=== PATIENT | female | born 1985 | race American Indian/Alaskan Native ===

== ENCOUNTER 2016-08-21 12:42 | Emergency (ER) | payer MEDICAID | END 2016-08-21 12:43 | disposition home or self-care (01) | LOC: ED 12:42 | DX: R03.0 Elevated blood-pressure reading, without diagnosis of hypertension (principal); Z53.21 Procedure and treatment not carried out due to patient leaving prior to being seen by health care provider ==

== ENCOUNTER 2016-12-28 23:15 | Emergency (ER) | payer SELFPAY ==
[2016-12-28 23:52] LABS: Basophils % (Auto) 0.8 % (0.0-1.8); Eosinophils % (Auto) 2.1 % (0.0-4.3); Hematocrit 36.3 % (30.3-42.9); Hemoglobin 12.1 gm/dl (10.1-14.3); Mean Corpuscular HGB Conc 33 % (30-34); Mean Corpuscular Hemoglobin 26 pg (28-32); Mean Corpuscular Volume 77 fl (79-97); Platelet Count 278 K/mm3 (140-440); Red Blood Count 4.71 M/mm3 (3.65-5.03); Red Cell Distribution Width 16.2 % (13.2-15.2); White Blood Count 6.8 K/mm3 (4.5-11.0)
[2016-12-29 00:12] LABS: Anion Gap 17 mmol/L; BUN/Creatinine Ratio 15.71; Blood Urea Nitrogen 11 mg/dL (7-17); Calcium 9.3 mg/dL (8.4-10.2); Carbon Dioxide 22 mmol/L (22-30); Chloride 100.6 mmol/L (98-107); Glucose 104 mg/dL (65-100); Lipase 39 units/L (13-60); Potassium 3.9 mmol/L (3.6-5.0); Sodium 136 mmol/L (137-145)
[2016-12-29 01:48] LABS: Bacteria,Urine 1+ /HPF (Negative); Bilirubin,Urine NEG (Negative); Blood,Urine NEG (Negative); Ketones,Urine NEG (Negative); Leukocyte Esterase,Urine SM (Negative); Nitrite,Urine NEG (Negative); Protein,Urine <15 mg/dL mg/dL (Negative); Urobilinogen,Urine < 2.0 mg/dL (<2.0)
[2016-12-29] MEDS ORDERED: TORADOL IM ONE (03:46)
--- NOTE | 2016-12-29 03:46 | Emergency Department Report ---
ED Chest Pain HPI - General Chief Complaint: Chest Pain Stated Complaint: SOB, LIGHTHEADED, FAINT Time Seen by Provider: 12/29/16 03:35 Source: patient Mode of arrival: Ambulatory Limitations: No Limitations - History of Present Illness Initial Comments: This is a 31-year-old female. She is previously unknown to me. She does not have a primary care doctor. She denies chronic medical conditions. The patient presents to the ER complaining of chest pain, dizziness and lightheadedness. Symptoms have been present for 2 weeks. They are worse at night. Patient reports multiple psychosocial stressors, and feels quite anxious. The chest pain as central, and it does not radiate to the back, arms or neck. There is no vomiting or diaphoresis. There is no leg pain or leg swelling. No recent trips greater than 4 hours. No recent hospital admissions. Does not take control tablets. No recent aspirin use. No cocaine use. Symptoms do not have exacerbating or relieving factors. MD Complaint: chest pain -: Gradual, week(s) Onset: during rest Pain Location: left chest Pain Radiation: none Severity: mild Severity scale (0 -10): 8 Quality: aching Consistency: intermittent Improves With: rest Worsens With: other (when she thinks about the things that are " stressing" her) Other Symptoms: denies: cough, fever, syncope Treatments Prior to Arrival: none Aspirin use within the Past 7 Days: (0) No - Related Data On Oral Contraceptives: No Previous Rx's Medication Instructions Recorded Last Taken Type Ibuprofen [Motrin] 600 mg PO Q8H PRN #30 tablet 12/29/16 Unknown Rx Allergies Allergy/AdvReac Type Severity Reaction Status Date / Time No Known Allergies Allergy Verified 12/19/15 16:11 Heart Score - HEART Score History: Slightly suspicious EKG: Normal Age: < 45 Risk factors: No known risk factors Troponin: < normal limit HEART Score: 0 - Critical Actions Critical Actions: 0-3 pts:0.9-1.7%risk of adverse cardiac event.Candidate for discharge ED Review of Systems ROS: Stated complaint: SOB, LIGHTHEADED, FAINT Other details as noted in HPI Constitutional: denies: fever Eyes: denies: vision change ENT: denies: epistaxis Respiratory: shortness of breath Cardiovascular: chest pain Gastrointestinal: denies: vomiting Genitourinary: denies: dysuria Musculoskeletal: denies: back pain Skin: denies: lesions Neurological: weakness Psychiatric: anxiety ED Past Medical Hx - Past Medical History Previous Medical History?: Yes Hx Hypertension: No Hx Diabetes: No Hx Deep Vein Thrombosis: No Hx Renal Disease: No Hx Sickle Cell Disease: No Hx Seizures: No Hx Psychiatric Treatment: Yes (anxiety) Hx Asthma: No Additional medical history: one transfusions. - Surgical History Past Surgical History?: Yes Additional Surgical History: 3 c sections, - Social History Smoking Status: Never Smoker Substance Use Type: None - Medications Home Medications: Home Medications Medication Instructions Recorded Confirmed Last Taken Type Ibuprofen [Motrin] 600 mg PO Q8H PRN #30 tablet 12/29/16 Unknown Rx ED Physical Exam - General Limitations: No Limitations General appearance: alert, in no apparent distress - Head Head exam: Present: atraumatic, normocephalic - Eye Eye exam: Present: normal appearance, PERRL, EOMI, other (visual acuity intact to finger counting, color perception, reading at a close distance). Absent: nystagmus - ENT ENT exam: Present: normal exam, normal orophraynx, mucous membranes moist, normal external ear exam - Neck Neck exam: Present: normal inspection, full ROM. Absent: tenderness, meningismus - Respiratory Respiratory exam: Present: normal lung sounds bilaterally, other (there is no breast tenderness. The bilateral breast exam is unremarkable with no redness, pus or streaking. Escorted by nurse SHENG BENITEZ). Absent: respiratory distress, wheezes, rales, rhonchi, stridor, chest wall tenderness - Cardiovascular Cardiovascular Exam: Present: regular rate, normal rhythm, normal heart sounds. Absent: bradycardia, tachycardia, irregular rhythm, systolic murmur, diastolic murmur, rubs, gallop - GI/Abdominal GI/Abdominal exam: Present: soft, normal bowel sounds. Absent: distended, tenderness, guarding, rebound, rigid, pulsatile mass - Extremities Exam Extremities exam: Present: normal inspection, full ROM, normal capillary refill. Absent: tenderness, pedal edema, joint swelling, calf tenderness - Back Exam Back exam: Present: normal inspection, full ROM. Absent: tenderness, CVA tenderness (R), CVA tenderness (L), muscle spasm, paraspinal tenderness, vertebral tenderness - Neurological Exam Neurological exam: Present: alert, oriented X3, normal gait (normal gait. Normal tandem gait. Negative pronator drift. Normal [id number]. No pass pointing. Negative Romberg), other (Extraocular movements intact. Tongue midline. No facial droop. Facial sensation intact to light touch in the V1, V2 , V3 distribution bilaterally. 5 and 5 strength in 4 extremities.. Sensation is intact to light touch in 4 extremities.). Absent: motor sensory deficit - Psychiatric Psychiatric exam: Present: anxious - Skin Skin exam: Present: warm, dry, intact, normal color. Absent: rash ED Course Vital Signs 12/28/16 12/29/16 12/29/16 23:26 01:17 01:20 Temperature 97.4 F L Pulse Rate 78 69 64 Respiratory 18 18 13 Rate Blood Pressure 122/80 112/69 O2 Sat by Pulse 99 98 Oximetry 12/29/16 12/29/16 01:38 04:01 Temperature Pulse Rate Respiratory 18 18 Rate Blood Pressure O2 Sat by Pulse 100 Oximetry DARIUS score - Darius Score Age > 65: (0) No Aspirin use within the Past 7 Days: (0) No 3 or more CAD Risk Factors: (0) No 2 or more Angina events in past 24 hrs: (0) No Known CAD with more than 50% Stenosis: (0) No Elevated Cardiac Markers: (0) No ST Deviation Greater than 0.5mm: (0) No DARIUS Score: 0 ED Medical Decision Making - Lab Data Result diagrams: 12/28/16 23:40 12/28/16 23:34 Vital Signs 12/28/16 12/29/16 12/29/16 23:26 01:17 01:20 Temperature 97.4 F L Pulse Rate 78 69 64 Respiratory 18 18 13 Rate Blood Pressure 122/80 112/69 O2 Sat by Pulse 99 98 Oximetry 12/29/16 12/29/16 01:38 04:01 Temperature Pulse Rate Respiratory 18 18 Rate Blood Pressure O2 Sat by Pulse 100 Oximetry Lab Results 12/28/16 12/28/16 12/28/16 Range/Units 23:34 23:35 23:40 WBC 6.8 (4.5-11.0) K/mm3 RBC 4.71 (3.65-5.03) M/mm3 Hgb 12.1 (10.1-14.3) gm/dl Hct 36.3 (30.3-42.9) % MCV 77 L (79-97) fl MCH 26 L (28-32) pg MCHC 33 (30-34) % RDW 16.2 H (13.2-15.2) % Plt Count 278 (140-440) K/mm3 Lymph % (Auto) 41.4 H (13.4-35.0) % Cook % (Auto) 6.1 (0.0-7.3) % Eos % (Auto) 2.1 (0.0-4.3) % Baso % (Auto) 0.8 (0.0-1.8) % Lymph # 2.8 (1.2-5.4) K/mm3 Cook # 0.4 (0.0-0.8) K/mm3 Eos # 0.1 (0.0-0.4) K/mm3 Baso # 0.1 (0.0-0.1) K/mm3 Seg Neutrophils % 49.6 (40.0-70.0) % Seg Neutrophils # 3.3 (1.8-7.7) K/mm3 Sodium 136 L (137-145) mmol/L Potassium 3.9 (3.6-5.0) mmol/L Chloride 100.6 (98-107) mmol/L Carbon Dioxide 22 (22-30) mmol/L Anion Gap 17 mmol/L BUN 11 (7-17) mg/dL Creatinine 0.7 (0.7-1.2) mg/dL Estimated GFR > 60 ml/min BUN/Creatinine Ratio 15.71 % Glucose 104 H (65-100) mg/dL Calcium 9.3 (8.4-10.2) mg/dL Troponin T < 0.010 (0.00-0.029) ng/mL Lipase 39 (13-60) units/L HCG, Qual Negative (Negative) Urine Color (Yellow) Urine Turbidity (Clear) Urine pH (5.0-7.0) Ur Specific Mobile (1.003-1.030) Urine Protein (Negative) mg/dL Urine Glucose (UA) (Negative) mg/dL Urine Ketones (Negative) mg/dL Urine Blood (Negative) Urine Nitrite (Negative) Urine Bilirubin (Negative) Urine Urobilinogen (<2.0) mg/dL Ur Leukocyte Esterase (Negative) Urine WBC (Auto) (0.0-6.0) /HPF Urine RBC (Auto) (0.0-6.0) /HPF U Epithel Cells (Auto) (0-13.0) /HPF Urine Bacteria (Auto) (Negative) /HPF 12/28/16 12/29/16 Range/Units Unknown 02:34 WBC (4.5-11.0) K/mm3 RBC (3.65-5.03) M/mm3 Hgb (10.1-14.3) gm/dl Hct (30.3-42.9) % MCV (79-97) fl MCH (28-32) pg MCHC (30-34) % RDW (13.2-15.2) % Plt Count (140-440) K/mm3 Lymph % (Auto) (13.4-35.0) % Cook % (Auto) (0.0-7.3) % Eos % (Auto) (0.0-4.3) % Baso % (Auto) (0.0-1.8) % Lymph # (1.2-5.4) K/mm3 Cook # (0.0-0.8) K/mm3 Eos # (0.0-0.4) K/mm3 Baso # (0.0-0.1) K/mm3 Seg Neutrophils % (40.0-70.0) % Seg Neutrophils # (1.8-7.7) K/mm3 Sodium (137-145) mmol/L Potassium (3.6-5.0) mmol/L Chloride (98-107) mmol/L Carbon Dioxide (22-30) mmol/L Anion Gap mmol/L BUN (7-17) mg/dL Creatinine (0.7-1.2) mg/dL Estimated GFR ml/min BUN/Creatinine Ratio % Glucose (65-100) mg/dL Calcium (8.4-10.2) mg/dL Troponin T < 0.010 (0.00-0.029) ng/mL Lipase (13-60) units/L HCG, Qual (Negative) Urine Color Straw (Yellow) Urine Turbidity Clear (Clear) Urine pH 6.0 (5.0-7.0) Ur Specific Mobile 1.009 (1.003-1.030) Urine Protein <15 mg/dl (Negative) mg/dL Urine Glucose (UA) Neg (Negative) mg/dL Urine Ketones Neg (Negative) mg/dL Urine Blood Neg (Negative) Urine Nitrite Neg (Negative) Urine Bilirubin Neg (Negative) Urine Urobilinogen < 2.0 (<2.0) mg/dL Ur Leukocyte Esterase Sm (Negative) Urine WBC (Auto) 2.0 (0.0-6.0) /HPF Urine RBC (Auto) 3.0 (0.0-6.0) /HPF U Epithel Cells (Auto) 7.0 (0-13.0) /HPF Urine Bacteria (Auto) 1+ (Negative) /HPF - EKG Data -: EKG Interpreted by Me EKG shows normal: sinus rhythm, axis, intervals, QRS complexes, ST-T waves Rate: normal - EKG Data 12/29/16 04:19 EKG #1 demonstrates normal sinus, 75 bpm, normal intervals, normal axis, premature ventricular contraction, not consistent with STEMI. EKG #2 demonstrates normal sinus, 71 bpm, normal intervals, normal axis, not morphologically consistent with STEMI - Radiology Data Radiology results: image reviewed interpreted by me: X-ray of the chest is negative for acute disease - Medical Decision Making Differential diagnosis: Panic attacks, anxiety, GERD, gastritis, costochondritis , pneumonia, myocarditis, pericarditis, acute coronary syndrome Assessment and plan: 31-year-old female with 2 weeks of intermittent dizziness, lightheadedness, chest tightness. No pulmonary was or DVT risk factors, low risk by well's criteria, and perc negative, Low risk by DARIUS score. Low risk by heart score. Troponin is negative multiple times. EKG morphologically within normal limits 2. Patient at low risk for major adverse cardiac event. She felt improved after pain medication. Given lack of fever, tachycardia, negative troponin, myocarditis, pericarditis unlikely. Critical care attestation.: If time is entered above; I have spent that time in minutes in the direct care of this critically ill patient, excluding procedure time. ED Disposition Clinical Impression: Chest pain Disposition: -01 TO HOME OR SELFCARE Is pt being admited?: No Does the pt Need Aspirin: No Condition: Stable Instructions: Chest Pain (ED), Costochondritis (ED) Additional Instructions: Rest and avoid heavy lifting. Avoid strenuous physical activity. 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 Return to the ER right away with new pain, worsening pain, migration of pain, fevers, chills, confusion, weakness, inability to move an arm or leg, bladder or bowel retention or incontinence, confusion. Referrals: PRIMARY CARE, [Primary Care Provider] - 3-5 Days ADDIE WILSON MD [Staff Physician] - 3-5 Days PRISCILLA GUPTA MD [Staff Physician] - 3-5 Days AZUL LEIJA MD [Staff Physician] - 3-5 Days
[2016-12-29 04:40] VITALS: BP 111/69
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
== END 2016-12-29 04:41 | disposition home or self-care (01) ==
LOC: ED 23:15
DX: R07.9 Chest pain, unspecified (principal)
CPT/HCPCS: 36415; 71020; 80048; 81001; 83690; 84484; 84703; 85025; 93005; 93010; 96372; 99285; J1885

== ENCOUNTER 2017-06-14 20:10 | Emergency (ER) | payer SELFPAY ==
[2017-06-14 21:04] VITALS: BP 109/74
== END 2017-06-14 22:00 | disposition left against medical advice (07) ==
LOC: ED 20:10
DX: Z53.21 Procedure and treatment not carried out due to patient leaving prior to being seen by health care provider (principal)

== ENCOUNTER 2017-10-01 17:38 | Emergency (ER) | payer OTHER, MEDICAID ==
[2017-10-01 17:51] VITALS: BP 123/68
[2017-10-01 21:16] LABS: HCG Qualitative,Urine Negative (Negative)
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
[2017-10-01] MEDS ORDERED: ULTRAM PO ONE (21:57)
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
== END 2017-10-01 22:20 | disposition home or self-care (01) ==
LOC: ED 17:38
DX: S39.012A Strain of muscle, fascia and tendon of lower back, initial encounter (principal); R07.89 Other chest pain; F41.9 Anxiety disorder, unspecified; J45.909 Unspecified asthma, uncomplicated; V49.59XA Passenger injured in collision with other motor vehicles in traffic accident, initial encounter; Y93.89 Activity, other specified; Y92.89 Other specified places as the place of occurrence of the external cause; Y99.8 Other external cause status
CPT/HCPCS: 72100; 81025; 99284